=== PATIENT | female | born 1975 | race Caucasian/White ===

== ENCOUNTER 2022-06-04 11:34 | Emergency (ER) | payer BC ==
[~2022-06-04] VITALS: Ht 180.3 cm; Wt 93.4 kg
[2022-06-04] VITALS (9 sets, daily range): BP systolic 110–138; BP diastolic 61–75
[2022-06-04 12:11] LABS: BASO% 0.1 % (0-3); HEMATOCRIT 34.2 % (37.0-47.0); HEMOGLOBIN 10.1 g/dl (12.0-16.0); IMMATURE GRANULOCYTES 0.1 % (0.0-5.0); LYMPH% 14.1 % (15-41); MEAN CORPUSCULAR HGB 21.3 pG CALC (26.0-32.0); MEAN CORPUSCULAR HGB CONC 29.5 g/dL CAL (32.0-36.0); MONO% 7.2 % (2-13); NEUT# 5.4 thou/uL (2.00-7.15); NEUT% 77.5 % (42-76); RED BLOOD COUNT 4.75 mill/uL (4.20-5.60); RED CELL DISTRI WIDTH 16.4 % (11.5-15.5)
[2022-06-04 12:29] LABS: ALBUMIN 4.3 g/dL (3.2-5.0); ALKALINE PHOSPHATASE 46 u/l (38-126); ANION GAP 13 (6-22 (CALC)); BILIRUBIN, TOTAL 0.4 mg/dL (0.02-1.3); BUN 9 mg/dL (7-17); BUN/CREATININE RATIO 12 (12-20 (CALC)); CARBON DIOXIDE 22 mmol/l (22-30); CHLORIDE 106 mmol/l (95-108); CREATININE 0.7 mg/dL (0.5-1.0); GFR FOR AFR.AMER. > 60 ML/MIN (>=60 (CALC)); GFR OTHER RACES > 60 ML/MIN (>=60 (CALC)); POTASSIUM 3.5 mmol/l (3.5-5.1); SGOT/AST 37 u/l (14-36); SODIUM 138 mmol/l (137-146); TOTAL PROTEIN 7.1 g/dL (6.3-8.2)
[2022-06-04 14:31] LABS: URINE BILIRUBIN - DIPSTICK NEGATIVE (NEGATIVE); URINE BLOOD DIPSTICK TRACE-LYSED (NEGATIVE); URINE COLOR YELLOW; URINE GLUCOSE - DIPSTICK NEGATIVE (NEGATIVE); URINE KETONE NEGATIVE (NEGATIVE); URINE LEUK ESTERASE NEGATIVE (NEGATIVE); URINE PROTEIN - DIPSTICK TRACE mg/dL (NEG-TRACE); URINE UROBILINOGEN - DIPSTICK 0.2 E.U./dL (0.2)
[2022-06-04 14:33] LABS: URINE NITRITE - DIPSTICK NEGATIVE (Negative)
== END 2022-06-04 15:30 | disposition home or self-care (01) | DRG 605 ==
LOC: ED 11:34
PROVIDERS: Family Medicine
DX: S00.83XA Contusion of other part of head, initial encounter (principal); S20.319A Abrasion of unspecified front wall of thorax, initial encounter; M25.572 Pain in left ankle and joints of left foot; M79.605 Pain in left leg; M25.522 Pain in left elbow; I10 Essential (primary) hypertension; V80.010A Animal-rider injured by fall from or being thrown from horse in noncollision accident, initial encounter; Y93.52 Activity, horseback riding; Y92.009 Unspecified place in unspecified non-institutional (private) residence as the place of occurrence of the external cause